=== PATIENT | female | born 1945 | race Caucasian/White ===

== ENCOUNTER 2016-11-20 21:08 | Inpatient (IN) | payer OTHER, MEDICAID ==
[~2016-11-20] VITALS: Ht 165.1 cm; Wt 70.3 kg
[2016-11-20 22:30] VITALS: BP 147/76
--- NOTE | 2016-11-20 23:30 | NUR ---
ADMISSION NOTES ADMITTED THIS 70 Y/O FEMALE PATIENT DIRECT ADMIT FROM [facility]. PT IS ON 5250 HOLD FOR DTS, GD. PSYCH DX OF SCHIZOAFFECTIVE DISORDER, DELUSIONAL BEHAVIOR. UPON FACE TO FACE ASSESSMENT PATIENT IS A&O X2-3, DISORGANIZED THOUGHTS, IRRITABLE, EASILY AGITATED AND EASILY GETS CONFUSED,THE PT. MOOD S DYSPHORIC , DEPRESSED PT. IS POOR HISTORIAN, POOR INSIGHT ,POOR JUDGEMENT AND AUDITORY HALLUCINATIONS,V/S WNL, NO ACUTE RESPIRATORY BOTH MD AWARE AND NOTIFIED OF THE ADMISSION. SKIN ASSESSMENT DONE AND SKIN INTACT. MRSA SWAB NARES TAKEN. BELONGINGS AND CONTRABAND CHECKED AND PLACED IN THE SAFE CABINET. PATIENT RIGHT HAND BOOK GIVEN AND EXPLAINED TO THE PT. ALL NEEDS ATTENDED AND ANTICIPATED. WILL CONTINUE TO MONITOR FOR SAFETY AND BEHAVIOR.
[2016-11-21] MEDS ORDERED: LORAZEPAM 0.5 MG TABLET PO PRN
[2016-11-21] MEDS ORDERED: LORAZEPAM 0.5 MG TABLET ONE (00:48)
[2016-11-21] MEDS ORDERED: TEMAZEPAM 7.5 MG CAPSULE ONE (00:50)
[2016-11-21 00:59] VITALS: BP 147/76
[2016-11-21] MEDS: TEMAZEPAM 7.5 MG CAPSULE PO PRN ×2 (01:42→21:47)
[2016-11-21] MEDS ORDERED: METF10002 PO (05:14)
[2016-11-21] MEDS ORDERED: TRAZ-144 PO (05:14)
[2016-11-21] MEDS ORDERED: IBUP-1481 PO (05:14)
[2016-11-21] MEDS ORDERED: ATOR20TA PO (05:14)
[2016-11-21] MEDS ORDERED: PARO20TA6 PO (05:14)
[2016-11-21] MEDS ORDERED: BENA20TA2 PO (05:14)
[2016-11-21] MEDS ORDERED: SIMV40TA5 PO (05:14)
[2016-11-21] MEDS ORDERED: ARIP5TAB4 PO (05:14)
[2016-11-21] MEDS ORDERED: ESCI5TAB PO (05:14)
[2016-11-21] MEDS ORDERED: FENO48TA5 PO (05:14)
[2016-11-21] MEDS ORDERED: DIPH-530 PO (05:14)
--- NOTE | 2016-11-21 06:21 | NUR ---
RN GPS NOTES NOTIFY DR. ROBLES REGARDING NEW ADMISSION MEDS RECON
[2016-11-21 07:20] LABS: BASOPHILS % (AUTO) 0.3 % (0.0-2.0); EOSINOPHILS # (AUTO) 0.2 /CMM (0.0-0.7); EOSINOPHILS % (AUTO) 2.4 % (0.0-6.0); HEMATOCRIT 38 % (33-45); LYMPHOCYTES # (AUTO) 1.5 /CMM (0.8-4.8); LYMPHOCYTES % (AUTO) 22.5 % (20.0-44.0); MEAN CORPUSCULAR HEMOGLOBIN 31 PG (26.0-33.0); MEAN CORPUSCULAR HGB CONC 34 g/dl (31.0-36.0); MEAN CORPUSCULAR VOLUME 91 fL (82-100); MONOCYTES # (AUTO) 0.5 /CMM (0.1-1.30); MONOCYTES % (AUTO) 7.2 % (2.0-12.0); NEUTROPHILS # (AUTO) 4.4 /CMM (1.8-8.9); NEUTROPHILS % (AUTO) 67.6 % (43.0-81.0); PLATELET COUNT (AUTO) 206 /CMM (150-450); RDW COEFFICIENT OF VARIATION 13.3 (11.5-15.0); WHITE BLOOD COUNT (AUTO) 6.5 K/uL (4.3-11.0)
[2016-11-21 07:41] LABS: ALBUMIN 3.8 g/dL (3.4-5.0); BILIRUBIN,TOTAL 0.3 mg/dL (0.2-1.0); CALCIUM, SERUM 9.4 mg/dL (8.5-10.1); CREATININE 0.7 mg/dL (0.6-1.3)
[2016-11-21 08:00] VITALS: BP 128/64
[2016-11-21] MEDS ORDERED: QUET200T PO (08:06)
[2016-11-21] MEDS ORDERED: ACET-868 PO (08:06)
[2016-11-21] MEDS ORDERED: DIPH25CA6 PO (08:06)
[2016-11-21] MEDS ORDERED: MAG30ORA PO (08:06)
[2016-11-21] MEDS ORDERED: MAGN400O6 PO (08:06)
[2016-11-21] MEDS ORDERED: LORA2TAB PO (08:06)
--- NOTE | 2016-11-21 10:29 | NUR ---
SPOKE TO DE A EXECUTIVE STEWARD AT [facility] AND SAYING THAT THE MEDICAL RECORDS IS CLOSE IN THE WEEKENDS AND PTS. CHART IS IN THE MEDICAL RECORDS AND HE WILL SEND THE COPY OF THE HOLD ON WEDNESDAY (11/23/16). DE'S TELEPHONE # [phone]. Addendum: 11/21/16 at 2043 by MILES VALLE RN GPS/RN-PATIENT WAS SENT TO [facility] BY [facility] WITHOUT A COPY OF THE 14 DAY HOLD DOCUMENT.A COPY OF THE CERTIFICATE REVIEW HEARING WAS RECEIVED.[facility]ISS[facility] OF THE 14 DAY HOLD,SPOKE TO CHARGE NURSE PEYTON.SHE SAID SHE CANNOT FIND THE 14 DAY HOLD PAPER.EXPLAINED TO HER THAT A COPY OF THE HOLD SHOULD BE SENT TO THE FACILITY/HOSP. WHERE THE PATIENT IS WILL BE ADMITTED.CALLED [facility] BUT CANNOT BE REACHED.HUMANITIES TEACHER OSMAN WAS INFORMED.PLACED A CALL TO [facility] AND HAD A THREE WAY CONVERSATION WITH OSMAN.INFORMED [facility] THAT PT.WAS SENT TO US WITHOUT THE COPY OF THE 5250 HOLD.TOOK A PICTURE OF THE HEARING CERT.AND SENT TO [facility] VIA TEXT.PER HAR[facility]ER WE CAN ADMIT THE PT. AND CALL [facility] IN THE MORNING TO GET A COPY OF THE 5250 HOLD.ENDORSED TO CHARGE NURSE MOROCHO TO FOLLOW UP.
[2016-11-21] MEDS ORDERED: MAG HYDROX/AL HYDROX/SIMETH 30 ML UDC PO PRN ×2 (10:30)
[2016-11-21] MEDS ORDERED: MAGNESIUM HYDROXIDE 30 ML UDC PO PRN ×2 (10:30)
[2016-11-21] MEDS ORDERED: ACETAMINOPHEN 325 MG TABLET PO PRN ×2 (10:30)
[2016-11-21] MEDS ORDERED: QUETIAPINE FUMARATE 25 MG TABLET PO PRN (13:00)
[2016-11-21] MEDS: QUETIAPINE FUMARATE 25 MG TABLET PO SCH ×3 (13:06→21:47)
[2016-11-21] MEDS: PAROXETINE HCL 20 MG TABLET PO SCH (14:12)
[2016-11-21 16:15] VITALS: BP 163/67
[2016-11-21] MEDS: METFORMIN 500 MG TABLET PO SCH (16:36)
[2016-11-21 20:00] VITALS: BP 140/71
[2016-11-22 08:00] VITALS: BP 146/62
[2016-11-22] MEDS: METFORMIN 500 MG TABLET PO SCH ×2 (08:56→17:36)
[2016-11-22] MEDS: PAROXETINE HCL 20 MG TABLET PO SCH (08:56)
[2016-11-22] MEDS: QUETIAPINE FUMARATE 25 MG TABLET PO SCH ×3 (08:56→21:19)
[2016-11-22] MEDS: Fenofibrate 48 MG TABLET PO SCH (08:56)
[2016-11-22] MEDS: BENAZEPRIL HCL 20 MG TABLET PO SCH (08:59)
[2016-11-22 16:00] VITALS: BP 106/65
[2016-11-22 19:34] VITALS: BP 114/65
[2016-11-22] MEDS: ATORVASTATIN 10 MG TABLET PO SCH (21:21)
--- NOTE | 2016-11-22 21:46 | NUR ---
GPS RN NOTE: PATIENT NOTED WITH EPISODE OF CLOSING THE DOOR AND PLACED THE CHAIR ON THE BACK OF THE DOOR. WHEN TRIED OPENING THE DOOR, PATIENT GETS AGITATED AND BANG THE DOOR. EXPLAINED TO THE PATIENT THAT SHE IS NOT ALLOWED TO CLOSE THE DOOR FOR SAFETY PURPOSES AND THAT IS THE POLICY OF THE UNIT. REDIRECTED THE PATIENT. PATIENT AGREEABLE TO THE POLICY AND ASKED FOR APOLOGY ABOUT WHAT HAPPENED. WILL CONTINUE TO MONITOR [id number] FOR SAFETY
[2016-11-23 08:00] VITALS: BP 142/81
[2016-11-23] MEDS: PAROXETINE HCL 20 MG TABLET PO SCH (08:38)
[2016-11-23] MEDS: QUETIAPINE FUMARATE 25 MG TABLET PO SCH ×2 (08:38→16:28)
[2016-11-23] MEDS: METFORMIN 500 MG TABLET PO SCH ×2 (08:38→16:27)
[2016-11-23] MEDS: Fenofibrate 48 MG TABLET PO SCH (08:39)
[2016-11-23] MEDS: IBUPROFEN 400 MG TABLET PO PRN ×2 (08:39→16:27)
[2016-11-23] MEDS: BENAZEPRIL HCL 20 MG TABLET PO SCH (08:39)
--- NOTE | 2016-11-23 10:22 | NUR ---
UR Update: slate worker faxed (Face sheet and H&P) to Shelia Burnette from [facility] ( ). Per [facility] Bass will take over the case. slate worker will follow-up.
--- NOTE | 2016-11-23 10:30 | NUR ---
plate worker faxed (face sheet and H&P) to case management from [facility] ( / ). plate worker will follow-up.
[2016-11-23 16:00] VITALS: BP 130/57
--- NOTE | 2016-11-23 16:32 | NUR ---
Preliminary discharge plan/discharge needs: Patient resides in a house by herself; [address] [place] [address] ([phone]). She would like to go back to her home after discharge. contact worker lithography spoke to patient's neighbor Rosanne Herrera ([phone]) who confirmed that patient lives home alone. Sw will help form a safe and proper discharge.
[2016-11-23 19:58] VITALS: BP 137/76
[2016-11-23] MEDS: ATORVASTATIN 10 MG TABLET PO SCH (21:15)
[2016-11-23] MEDS: QUETIAPINE FUMARATE 100 MG TABLET PO SCH (21:15)
[2016-11-23] MEDS: TRAZODONE 50 MG TABLET PO SCH (22:00)
[2016-11-24 08:00] VITALS: BP 132/56
[2016-11-24] MEDS: METFORMIN 500 MG TABLET PO SCH ×2 (08:04→16:39)
[2016-11-24] MEDS: PAROXETINE HCL 20 MG TABLET PO SCH (08:05)
[2016-11-24] MEDS: QUETIAPINE FUMARATE 100 MG TABLET PO SCH ×3 (08:05→22:08)
[2016-11-24] MEDS: BENAZEPRIL HCL 20 MG TABLET PO SCH (08:06)
[2016-11-24] MEDS: Fenofibrate 48 MG TABLET PO SCH (08:07)
--- NOTE | 2016-11-24 11:58 | NUR ---
GPS/RN PATIENT REQUESTED MOTRIN FOR HEADACHE THEN STATED THAT SHE DOESN'T WANT IT ANYMORE. WILL CONTINUE TO MONITOR.
--- NOTE | 2016-11-24 13:37 | NUR ---
UR Update: general distillery worker faxed (face sheet, H&P, med H&P, 5250 hold, med list, and progress notes) to Donna case management from [facility] ( / ). general distillery worker will follow-up. Per [facility] patient is authorized for today. AUTH# [id number]
--- NOTE | 2016-11-24 13:48 | NUR ---
balcony worker spoke to patient's neighbor Rosanne Herrera ([phone]) who stated that someone can picker / packer the patient when she is ready for discharge. Rosanne also stated that she was going to get patient's sons phone number. balcony worker will follow-up.
[2016-11-24 15:39] VITALS: BP 119/51
[2016-11-24 19:27] VITALS: BP 146/75
[2016-11-24] MEDS: ATORVASTATIN 10 MG TABLET PO SCH ×2 (22:00→22:08)
[2016-11-24] MEDS: TRAZODONE 50 MG TABLET PO SCH ×2 (22:00→22:08)
--- NOTE | 2016-11-24 22:04 | NUR ---
GPS RN NOTE: TRAZODONE 50 MG NOT GIVEN AT 11/23/16 D/T NON APPEARANCE IN THE SYSTEM.
--- NOTE | 2016-11-24 22:15 | NUR ---
GPS RN NOTE: PATIENT REFUSED LIPITOR, SEROQUEL AND TRAZODONE. EXPLAINED THE RISK AND BENEFITS BUT PATIENT STILL REFUSED. PER PATIENT MAYBE TOMORROW, SHE WILL TAKE IT BUT NOT RIGHT NOW. ATTEMPTED X 3 OFFERS BUT PATIENT STILL REFUSED. CN AWARE. WILL CONTINUE TO MONITOR [id number] FOR SAFETY
--- NOTE | 2016-11-25 02:30 | NUR ---
GPS RN NOTE: PATIENT CONFUSED, DISORGANIZED AND RESTLESS. ATTEMPTED TO GIVE MEDICATION FOR SLEEPING X 3, BUT PATIENT KEEPS ON REFUSING AND REPEATEDLY STATED THAT SHE IS GOING BACK TO [place]. REALITY ORIENTATION PROVIDED AND REDIRECTED THE PATIENT AND ASSISTED TO THE DINING AREA BECAUSE SHE KEEPS ON BOTHERING HER ROOM MATE. PATIENT AGREEABLE AT THIS TIME. PATIENT ABLE TO CONTRACT FOR SAFETY. WILL CONTINUE TO MONITOR [id number] FOR SAFETY.
[2016-11-25 08:00] VITALS: BP 140/63
[2016-11-25] MEDS: METFORMIN 500 MG TABLET PO SCH ×2 (08:39→17:09)
[2016-11-25] MEDS: BENAZEPRIL HCL 20 MG TABLET PO SCH (08:40)
[2016-11-25] MEDS: QUETIAPINE FUMARATE 100 MG TABLET PO SCH ×2 (08:40→20:39)
[2016-11-25] MEDS: PAROXETINE HCL 20 MG TABLET PO SCH (08:40)
[2016-11-25] MEDS: Fenofibrate 48 MG TABLET PO SCH (09:28)
[2016-11-25 16:00] VITALS: BP 143/85
[2016-11-25 19:31] VITALS: BP 126/65
[2016-11-25] MEDS: TRAZODONE 50 MG TABLET PO SCH (20:38)
[2016-11-25] MEDS: ATORVASTATIN 10 MG TABLET PO SCH (20:39)
[2016-11-25] MEDS: TEMAZEPAM 7.5 MG CAPSULE PO PRN (20:39)
[2016-11-26 06:54] LABS: CHOLESTEROL 134 mg/dL (<200); HDL CHOLESTEROL 49 mg/dL (40-60); LDL 74 mg/dL (0-99); TRIGLYCERIDES 73 mg/dL (30-150)
[2016-11-26 08:00] VITALS: BP 133/61
[2016-11-26] MEDS: PAROXETINE HCL 20 MG TABLET PO SCH (08:09)
[2016-11-26] MEDS: METFORMIN 500 MG TABLET PO SCH ×2 (08:10→16:39)
[2016-11-26] MEDS: BENAZEPRIL HCL 20 MG TABLET PO SCH (08:11)
[2016-11-26] MEDS: QUETIAPINE FUMARATE 100 MG TABLET PO SCH ×2 (08:11→21:04)
[2016-11-26] MEDS: Fenofibrate 48 MG TABLET PO SCH (08:16)
--- NOTE | 2016-11-26 10:55 | NUR ---
highway maintenance worker faxed referral packet to [facility] (phone: [phone]/ fax: [phone]) [address] [place] [address]. [address] maintenance worker will follow-up
--- NOTE | 2016-11-26 10:57 | NUR ---
food service worker spoke to Shavon from [facility] (phone: [phone]) to inform her that patient is willing to go to a board & Care and if she could provide assistance with finding patient a placement. Shavon emailed a list of [facility]. food service worker will follow-up.
--- NOTE | 2016-11-26 10:59 | NUR ---
dairy husbandry worker spoke to patient's neighbor Rosanne Herrera ([phone]) who stated that she was unable to get a contact number for patient's son or patient's daughter in law. Rosanne stated that she would be available to care for the patient during the day and another of the patient's neighbors could care for her at night. dairy husbandry worker will follow-up.
--- NOTE | 2016-11-26 11:48 | NUR ---
farmworker bulbs spoke to Annabel from [facility] (phone: [phone]/ fax: [phone]) [address] [place] [address], who stated that they cannot accept the patient because of her age they take patient's up to 59 years old.
--- NOTE | 2016-11-26 14:41 | NUR ---
dairy husbandry worker faxed initial review packet to [facility] [place] [address] (phone: [phone]/ ). Per Flory, at the facility, she will review the packet and make a decision by tomorrow. dairy husbandry worker will follow-up. Addendum: 11/26/16 at 1448 by NILDA BAKER [facility]
--- NOTE | 2016-11-26 14:48 | NUR ---
metal worker faxed initial review packet to [facility] (phone: [phone]/ ). Per Sharona she cannot accept the patient as she feels that patient should go to a SNF prior to accepting her. metal worker will follow-up.
--- NOTE | 2016-11-26 14:51 | NUR ---
tiller worker faxed initial review packet to [facility] ( ). tiller worker will follow-up.
--- NOTE | 2016-11-26 16:01 | NUR ---
UR Update: cement worker faxed updated clinicals to Donna director of casework services for [facility] ( / ). cement worker will follow-up.
[2016-11-26 16:03] VITALS: BP 104/62
[2016-11-26 19:51] VITALS: BP 102/63
[2016-11-26 20:13] VITALS: BP 102/63
[2016-11-26] MEDS: TRAZODONE 50 MG TABLET PO SCH (21:04)
[2016-11-26] MEDS: ATORVASTATIN 10 MG TABLET PO SCH (21:04)
[2016-11-27 07:58] VITALS: BP 130/58
[2016-11-27] MEDS: PAROXETINE HCL 20 MG TABLET PO SCH (09:09)
[2016-11-27] MEDS: METFORMIN 500 MG TABLET PO SCH ×2 (09:10→16:34)
[2016-11-27] MEDS: BENAZEPRIL HCL 20 MG TABLET PO SCH (09:10)
[2016-11-27] MEDS: QUETIAPINE FUMARATE 100 MG TABLET PO SCH (09:10)
[2016-11-27] MEDS: Fenofibrate 48 MG TABLET PO SCH (09:13)
--- NOTE | 2016-11-27 10:37 | NUR ---
UR Update: chisel worker has attempted to contact case therapist Donna Sands from [facility] ( / ) several times this morning. However, there phone line gives a busy signal. chisel worker will keep trying.
--- NOTE | 2016-11-27 15:23 | NUR ---
Discharge Note: Patient will be discharged to [address] [place] [address] ([phone]). Patient's friend Rosanne Herrera ([phone]) has been notified and will pick her up via private vehicle. Patient was agreeable with the discharge plan. Patient's mood and affect are appropriate. Patient denies suicidal and homicidal ideations. Shavon medical case worker for [facility] ([phone]) stated that she would follow-up with patient regarding a follow-up appointment with a psychiatrist, Shavon also stated that they will make a social work referral to have someone follow-up with her at home. conditioning room worker faxed home health order to Shavon medical case worker at [facility] ( ). conditioning room worker also referred patient to [email or web address] [address] [place] [id number] ([phone]). Facilitated info to IDT team who are in agreement with discharge arrangement. The multidisciplinary exitcare form was done, printed, signed, and given to the patient.
[2016-11-27 16:00] VITALS: BP 129/80
--- NOTE | 2016-11-27 19:41 | NUR ---
RN GPS NOTES PT. DISCHARGE HOME IN STABLE CONDITION, NO VERBALIZED SI /HI, PT. FRIEND ANGEL ALONSO PICK HER HER UP VIA PRIVATE VEHICLE , ANGEL ALONSO PH # IS [phone] . ALL BELONGINS RETURN BACK TO THE PT. NO ACUTE DISTRESS NOTED ,VITAL SIGNS WNL .
== END 2016-11-27 19:51 | disposition home health service (06) | DRG 885 ==
LOC: GPS 22:08
PROVIDERS: ADMIT Psychiatry & Neurology Psychiatry; ATTEND Internal Medicine
DX: F25.1 Schizoaffective disorder, depressive type (principal); F03.90 Unspecified dementia, unspecified severity, without behavioral disturbance, psychotic disturbance, mood disturbance, and anxiety; E11.9 Type 2 diabetes mellitus without complications; F23 Brief psychotic disorder; E78.5 Hyperlipidemia, unspecified; I10 Essential (primary) hypertension; Z73.6 Limitation of activities due to disability; F41.9 Anxiety disorder, unspecified
CPT/HCPCS: 36415; 80053-TC; 80061-TC; 85025-TC; 87081-TC